=== PATIENT | female | born 1970 | race Caucasian/White ===

== ENCOUNTER 2025-03-16 10:05 | Emergency (ER) | payer BC, SELFPAY ==
--- OUTSIDE RECORDS SUMMARY | 2025-03-16 10:08 | XMS_ITS | Clinical Summary ---
Author Organization [facility] Address [address] [place] [address] Care Team Providers Care Crusher Feeder Name Role Phone Unavailable Primary Care Provider Unavailabl e Source Comments You are receiving this document as you are listed as the primary care provider,follow-up provider, or the patient has been referred to you for consultation.This is in compliance with the Medicare andMedicaid EHR Incentive Program,which states Providers who transition their patient to another setting of careor provider of care or refers their patient to another provider of care shouldprovide summary care record for each transition of care or referral. [facility] Medications No known medications Active Problems No known active problems Social History Tobacco Use Types Packs/Day Years Used Date Smoking Tobacco: Never Assessed Comments Unknown Sex and Gender Information Value Date Recorded Sex Assigned at Not on file Legal Sex Female 8:16 PM CDT Gender Identity Not on file Sexual Orientation Not on file Last Filed Vital Signs Vital Sign Reading Time Taken Comments Blood Pressure - - Pulse - - Temperature - - Respiratory Rate - - Oxygen Saturation - - Inhaled Oxygen Concentration - - Weight 83 kg (182 lb 15.7 oz) 10/23/2024 9:16 AM STRIP MACHINE OPERATOR Height 165.1 cm (5' 5) 10/23/2024 9:16 AM STRIP MACHINE OPERATOR Body Mass Index 30.45 10/23/2024 9:16 AM STRIP MACHINE OPERATOR Plan of Treatment Health Maintenance Due Date Last Done Comments Cervical Cancer Screening Due 1968 Colon Cancer Screening Plan Due 1968 Diabetes Screening- (based on age and BMI) 1968 Hep C Screening (Preventive Services) 1968 Mammogram 1968 HIV Screening (Preventive Services) 1984 Adult Preventive Visit 02/24/1986 HepB Vaccine (1) 02/24/1987 Cholesterol 02/24/2013 Pneumococcal Vaccine 50+ Yrs (1 of 1 - PCV) 02/24/2018 Zoster/Shingles Vaccine (1 of 2) 02/24/2018 COVID-19 Vaccine (3 - season) 2024 09/28/2021, 05/23/2021 Influenza Vaccine (Season Ended) 2025 10/03/2022, 07/17/2019, 10/12/2014, Additional history exists DTaP/Tdap/Td Vaccine (3 - Tdap) 12/28/2026 12/28/2016, 08/14/2006 HepA Vaccine Aged Out No longer eligi ble based on patient's age to complete this topic Hib Vaccine Aged Out No longer eligi ble based on patient's age to complete this topic IPV (Polio) Vaccine Aged Out No longe r eligible based on patient's age to complete this topic MCV4 Vaccine Aged Out No longer eligi ble based on patient's age to complete this topic Meningococcal B Vaccine Aged Out No l onger eligible based on patient's age to complete this topic Insurance [facility]
--- OUTSIDE RECORDS SUMMARY | 2025-03-16 10:09 | XMS_ITS | Clinical Summary ---
Author Organization [facility] Address [address] [place] [id number] Care Team Providers Care Accounting Tutor Name Role Phone Denita Hernandez Primary Care Provider [phone] Margret Dunlap DIPPER MACHINE OPERATOR Unavailable [phone] Allergies Active Allergy Reactions Criticality Noted Date Comments Amoxicillin-Pot Clavulanate Rash 04/26/20 17 Medications levonorgestrel intrauterine device (MIRENA) 20 mcg/24 hr (5 years) IUD Inject 1 Device intrauterine one time for 1 dose. 1 Device 8 Active cetirizine-pseud oephedrine, 5-120 mg, (ZYRTEC-D) 5-120 mg tabletIndication s:Seasonal allergies Take 1 tablets every 12 hours if needed for allergies/conges tion. 180 Tablet 1 1 Active SUMAtriptan NASAL (IMITREX) 20 mg/actuation sprayIndications :Migraine without aura and without status migrainosus, not intractable Inhale 1 [place] (20 mg) into affected nostril(s) every 2 hours if needed for Migraine. Give at minimum 2hrs apart. Max Dose: 40mg per 24hrs. 6 Each 3 4 Active buPROPion (WELLBUTRIN XL) 150 mg Extended-Release tabletIndication s:Mild episode of recurrent major depressive disorder Take 3 Tablets (450 mg) by mouth every morning. 270 Tablet 4 Active venlafaxine (EFFEXOR XR) 37.5 mg Extended-Release capsuleIndicatio ns:Mild episode of recurrent major depressive disorder Take one capsule (37.5 mg) daily for 7 days. Then increase to two capsules (75 mg) daily for 7 days. Then increase to three capsules (112.5 mg) daily for 7 days. 42 Capsule 4 Active venlafaxine (EFFEXOR XR) 150 mg Extended-Release capsuleIndicatio ns:Mild episode of recurrent major depressive disorder TAKE 1 CAP BY MOUTH ONCE DAILY WITH EVENING MEAL. BEGIN ON WEEK #4 OF CROSS TAPER WITH LEXAPRO 90 Capsule 2 4 Active Active Problems Problem Noted Date Diagnosed Date Vitamin D deficiency 01/09/2024 H/O LEEP 01/10/2018 Overview (01/16/2024): 02/1999 ASCUS, Cryo 11/2004 NIL 04/2006 NIL 06/2007 NIL 08/2008 NIL 08/2009 NIL 08/2011 NIL 10/2014 NIL/HPV negative 12/2017 NIL/HPV negative 01/2024 UNS/HPV negative. Plan: Repeat pap within 4 months. Other acne 08/23/2009 Mild episode of recurrent major depressive disor jn 08/23/2009 Migraine, unspecified, witho ut mention of intractable migraine without mention of status migrainosus 06/20/2007 Class 2 obesity due to exces s calories without serious comorbidity with body mass index (BMI) of 35.0 to 35.9 in adult 06/20/2007 Overview (06/20/2007): BMI 10/2003 33 Resolved Problems Problem Noted Date Diagnosed Date Resolved Date Unspecified adjustment reaction 08/30/2009 01/08/2024 Depressive disorder, not elsewhere classified 06/20/20 07 08/23/2009 Encounters Date Type Department Care Team Description 03/16/2025 Nurse Triage [facility] [address] [place] [address] Denita Hernandez PA Knee Injury from Last 3 Months Immunizations Immunization Administration Dates Next Due AMB Influenza, IIV3 (Age >=3 years)(Flu Clinic Only) 08/13/2009 Influenza, IIV3 (Age 6-35 mos) 08/29/2011 Influenza, IIV3 (Age >=3 years) 09/17/20 13,08/29/2011,08/26/2010,2008,08/11/2008,09/18/2007,08/14/2006,1 12/20/2004,08/27/2003 Influenza, IIV4 10/03/2022,07/17/2019,10/12/2014 Td (Age >=7 Years) 05/01/1997 Td, Preservative Free (age > = 7 Years) 12/28/2016 Tdap 08/14/2006 Family History Medical History Relation Name Comments Alcoholism Father Cancer Father testicular Diabetes Father Heart Disease Father [place] at age 69 Stroke Father Diabetes Maternal Grandfather Cancer Mother melanoma Cancer-breast No Family History Relation Name Status Comments Father Maternal Grandfather Mother Social History Tobacco Use Types Packs/Day Years Used Date Smoking Tobacco: Former Cigarettes Q uit: 04/05/2003 Smokeless Tobacco: Never Tobacco Cessation:Counseling Given: Yes Alcohol Use Standard Drinks/Week Comments Yes 0 (1 standard drink = 0.6 oz pur e alcohol) 2-3 drinks per week PHQ-2 Answer Date Recorded PHQ-2 TOTAL SCORE 3 01/08/2024 Social Connections Answer Date Recorded Do you often feel lonely or isolated from those around you? 0 10/30/2023 Financial Resource Strain Answer Date R ecorded Difficulty of Paying Living Expenses 3 10/30/2023 Difficulty of Paying Living Expenses Not on file 10/30/2023 Food Insecurity Answer Date Recorded Do you worry your food will run out before you are able to buy more? 1 10/30/2023 Transportation Needs Answer Date Record ed Does lack of transportation keep you from medica l appointments? 1 10/30/2023 Does lack of transportation keep you from work, meetings or getting things that you need? 1 10/30/2023 Housing Stability Answer Date Recorded What is your housing situation today? 1 10/30/2023 Utilities Answer Date Recorded Do you have trouble paying f or utilities (for example, heat, electricity, water, phone)? 1 10/30/2023 Comments No Sex and Gender Information Value Date Recorded Sex Assigned at Not on file Legal Sex Female 5:17 AM LOG GETTER Gender Identity Not on file Sexual Orientation Not on file Obstetrics History Para Term AB IAB SAB Ectopic Multiple Livin g Live Births 2 2 2 2 Date Outcome GA Total Labor Labor/2nd/3rd Weight Sex Type Anes PTL Hazel A1 A5 Name Clin Term Term Last Filed Vital Signs Vital Sign Reading Time Taken Comments Blood Pressure 118/79 01/08/2024 9:38 AM LOG GETTER Pulse 66 01/08/2024 9:38 AM LOG GETTER Temperature 36.5 C (97.7 F) 04/23/2019 8:13 AM CDT Respiratory Rate - - Oxygen Saturation 98% 01/08/2024 9:38 AM LOG GETTER Inhaled Oxygen Concentration - - Weight 96.7 kg (213 lb 3.2 oz) 01/08/2024 9:38 A M LOG GETTER Height 164.7 cm (5' 4.84) 01/08/2024 9:38 AM CS T Body Mass Index 35.65 01/08/2024 9:38 AM LOG GETTER Plan of Treatment Health Maintenance Due Date Last Done Comments Pneumococcal series for age 50+ (1 of 1 - PCV) 02/24/2018 Zoster (shingles) series for age 50+ (1 of 2) 02/24/2018 COVID-19 vaccine series ( season) 2024 09/28/2021, 05/23/2021 Mammogram for age 45-75 11/02/2024 11/02/20, 10/03/2022, 09/07/2021, Additional history exists BMI (ht and wt on same day) for age 18+ 01/07/2025 01/08/2024, 10/03/2022, 10/12/2021, Additional history exists Depression screening for age 12+ 01/07/2025 01/08/2024, 03/29/2023, 10/03/2022, Additional history exists Pap test for age 21-65 01/07/2025 , 01/01/2018, 01/01/2018, Additional history exists Influenza Vaccine (Season Ended) 2025 10/03/2022, 07/17/2019, 10/12/2014, Additional history exists Tetanus booster 12/28/2026 12/28/2016, 08/05, 05/01/1997 Lipids for age 45-75 01/07/2029 01/08/2024, 10/03/2022, 03/31/2021, Additional history exists Colonoscopy through age 75 05/12/202905/12 (Completed outside of [facility]) Tdap Completed 08/14/2006 HIV for age 15-65 Completed 10/03/2022 Hepatitis C screening for ag e 18-79 Completed 10/03/2022 Procedures Procedure Name Priority Date/Time Associated Diagnosis Comments LIPID PANEL W REFLEX MEASURED LDL Routine 01/08/2024 10:37 AM LOG GETTER Lipid screening HPV HIGH RISK Routine 01/08/2024 10:20 AM LOG GETTER Screening for malignant neoplasm of cervix XR MAMMO DOM BILAT SCREEN Routine 11/02/2023 10:32 AM LOG GETTER Visit for screening mammogram ANTI HIV 1/2 Routine 10/03/2022 10:17 AM LOG GETTER Encounter for screening for HIV ANTI HCV Routine 10/03/2022 10:17 AM LOG GETTER Need for hepatitis C screening test from Last 3 Months or Most Recently Relevant to Health Maintenance Results * LIPID PANEL W REFLEX MEASURED LDL [[id number]] (01/08/2024 10:37 AM LOG GETTER) CHOLESTEROL,TOTAL 164 100 - 199 mg/dL 01/08/2024 6:47 PM LOG GETTER [facility] Comment: Cholesterol, Total Reference Ranges Desirable <200 mg/dL Borderline 200-239 mg/dL High >=240 mg/dL TRIGLYCERIDES 69 <150 mg/dL 01/08/2024 6:47 PM LOG GETTER [facility] HDL CHOLESTEROL 59 >40 mg/dL 6:47 PM LOG GETTER [facility] NON-HDL CHOLESTEROL 105 <145 mg/dl 01/08/2024 6:47 PM LOG GETTER [facility] CHOL/HDL RATIO 2.78 <4.50 01/08/2024 6:47 PM LOG GETTER [facility] LDL CHOLESTEROL 91 <=130 mg/dL 01/08/2024 6:47 PM LOG GETTER [facility] VLDL CHOLESTEROL 14 <=30 mg/dL 01/08/2024 6:47 PM LOG GETTER [facility] PROVIDER ORDERED STATUS RANDOM 01/08/2024 6:47 PM LOG GETTER [facility] Blood BLOOD SPECIMEN / Unknown Venipuncture / Unknown 01/08/2024 10:37 AM LOG GETTER 01/08/2024 10:37 AM LOG GETTER Denita HERNANDEZ CHEMISTRY Final Res ult Performing Organization Address [facility] Co de Phone Number [facility] [address] [place] [address], [place] * HPV HIGH RISK (01/08/2024 10:20 AM LOG GETTER) TYPE 16 Negative Negative 01/11/2024 4:24 PM LOG GETTER [facility] TYPE 18 Negative Negative 01/11/2024 4:24 PM LOG GETTER [facility] OTHER HIGH RISK TYPES Negative Negative 01/11/2024 4:24 PM LOG GETTER [facility] Other (Cervical) Non-Blood / Unknown 01/08/2024 10:20 AM LOG GETTER 01/09/2024 11:45 AM LOG GETTER Narrative [facility] - 01/11/2024 4:24 PM LOG GETTER HPV types 16, 18, 31, 33, 35, 39, 45, 51, 52, 56, 58, 59, 66 and 68 DNA were undetectable or below the pre-set threshold. Methodology: Travellution Imtiaz 4800 HPV Test Denita HERNANDEZ MICROBIOLOGY Final Res ult Performing Organization Address [facility] Co de Phone Number [facility] [address] [place] [address], [place] * XR MAMMO DOM BILAT SCREEN (11/02/2023 10:32 AM LOG GETTER) Anatomical Region Laterality Modality BREASTS, Breast Left, Breast Right Bilateral Mammography Impressions 11/02/2023 4:02 PM LOG GETTER There is no radiographic evidence for malignancy. Recommend annual mammograms. MAMMOGRAM ASSESSMENT: ACR 1 Negative PATIENTS: You will also receive a letter with your examination results in an easy to read format. If you have questions about your results, please contact your referring provider. Narrative 11/02/2023 4:02 PM LOG GETTER For Patients: As a result of the Century Cures Act, medical imaging exams and procedure reports are released immediately into your electronic medical record. You may view this report before your referring provider. If you have questions, please contact your health care provider. XR MAMMO DOM BILAT SCREEN [[id number]] CLINICAL HISTORY: This is an asymptomatic 53 y.o. patient. INDICATION FOR EXAM: Mammogram Screening. TECHNIQUE: CC & MLO views were obtained. This study was evaluated with the assistance of Computer-Aided Detection. Breast Tomosynthesis was used in interpretation. COMPARISON FILM: Yes 10/03/22 [facility] 09/07/21 [facility] FINDINGS: The breasts are heterogeneously dense, which may obscure small masses. There are no dominant masses, suspicious micro calcifications or areas of architectural distortion. Denita HERNANDEZ MAMMO Final Res ult * ANTI HCV (10/03/2022 10:17 AM LOG GETTER) HEPATITIS C ANTIBODY Non-React andrea Non-React andrea 10/04/2022 12:12 PM LOG GETTER [facility] Comment:Antibodies to HCV no t detected; does not exclude the possibility of exposure to HCV. Blood BLOOD SPECIMEN / Unknown Venipuncture / Unknown 10/03/2022 10:17 AM LOG GETTER 10/03/2022 10:19 AM LOG GETTER Dentia HERNANDEZ SEND OUTS Final Res ult [facility] [address] [place] [address], * ANTI HIV 1/2 (10/03/2022 10:17 AM LOG GETTER) HIV-1/HIV-2 ANTIBODY Non-Reacti ve Non-Reacti ve 10/04/2022 12:49 PM LOG GETTER [facility] Comment:HIV-1 p24 and HIV-1/ HIV-2 Ab not detected. Blood BLOOD SPECIMEN / Unknown Venipuncture / Unknown 10/03/2022 10:17 AM LOG GETTER 10/03/2022 10:19 AM LOG GETTER us Denita HERNANDEZ SEND OUTS Final Res ult [facility] [address] [place] [address], from Last 3 Months or Most Recently Relevant to Health Maintenance Insurance [facility] Care Teams Accounting Tutor Relationship Specialty Start Date End Date Denita Hernandez PA [address] [place] [address] PCP - General Physician Shank Cementer Hand 10/03/22 Margret Dunlap NP [address] [facility] [address] [place] [address] Sleep Medicine 06/18/24
[2025-03-16 10:34] VITALS: BP 127/80; PULSE 61; RESP 16; TEMP 36.6; O2SAT 97; BMI 31.6
--- NOTE | 2025-03-16 11:11 | CRLHL7_ITS ---
For Patients: As a result of the Cures Act, medical imaging exams and procedure reports are released immediately into your electronic medical record. You may view this report before your referring provider. If you have questions, please contact your health care provider. INDICATION: Lateral knee pain and swelling COMPARISON: None. TECHNIQUE: Three views right knee. FINDINGS: No acute or healing fracture. Normal joint alignment. Mild joint space narrowing with a small patellofemoral osteophyte. No focal bone lesions. Normal bone mineralization. Small knee joint effusion. No foreign body. IMPRESSION: Small right knee joint effusion. Very mild osteoarthritis. No acute appearing osseous findings. Dictated by Marcela Huerta MD @ 03/16/2025 11:39:11 AM (Electronically Signed)
--- NOTE | 2025-03-16 11:26 | ED_ITS ---
HPI - Extremity Injury (Lower) General Date Seen: 03/16/25 Chief Complaint: Extremity Pain/Injury, Lower Stated Complaint: Right knee gave up on her and she fell Time Seen by Provider: 03/16/25 10:51 Source: patient Mode of arrival: ambulatory History of Present Illness HPI Narrative: Patient is a 55-year-old female presenting for right knee pain. She states she was walking down the steps when her right knee suddenly gave out on her causing her fall down about 6 steps. She denies hitting her head. Denies any other pain at this time other than knee. States pain in the knee is minimal when she is at rest but she cannot breathing weight on her right knee. Denies any other previous injuries to this knee. Most the pain is in the lateral aspect of the joint line. Denies any numbness to the leg. Is able to move the rest of her leg without issues. Full range of motion of her ankle. No other concerns noted Related Data Home Medications ?Medication ?Instructions ?Recorded ?Confirmed bupropion HCl 150 mg 24 hr tablet, 150 mg PO DAILY 03/16/25 03/16/25 extended release fluoxetine 20 mg capsule 20 mg PO DAILY 03/16/25 03/16/25 Allergies Allergy/AdvReac Type Severity Reaction Status Date / Time amoxicillin Allergy Unknown Verified 03/16/25 10:38 Review of Systems Narrative: Pertinent systems reviewed and were negative unless stated in HPI PFSH PFSH Social History Smoking Status: Never smoker Second hand tobacco smoke exposure: No How often do you have a drink containing alcohol: never AUDIT-C Alcohol total score: 0 Non-prescribed substance use: denies use Exam Narrative: Exam Narrative: Const: Well-nourished, Well-developed, in mild distress Eyes: PERRL, no conjunctival injection, and symmetrical lids HENT: Atraumatic external nose and ears. Moist mucous membranes. Neck: Symmetric, trachea midline, No thyromegaly. MSK: Mild swelling to right knee. Decreased active range of motion of right knee secondary to pain. Positive recommend a test for lateral malleolus. Popping sensation felt in the knee on movement. I am able to fully extend the knee but had to do it slowly. No midline spinal tenderness. No tenderness noted to rest of joints, long bones, chest Skin: Warm, Dry. No rashes or lesions. Neuro: Normal Muscle tone, No focal neurological deficits. Psych: Awake, Alert, & Oriented x3. Appropriate mood and affect. Const: Vital Signs, click to edit/add: Vital Signs - 24 hr 03/16/25 10:34 Temperature 97.9 F Pulse Rate [Pulse Oximeter] 61 Respiratory Rate 16 Blood Pressure [Ri ght Upper Arm] 127/80 Pulse Oximetry 97 Oxygen Delivery Me thod Room Air Course Vital Signs Vital signs: Initial Vital Signs Temperature 97.9 F 03/16/25 10:34 Temperature Source Temporal Artery Scan 03/16/25 10:34 Pulse Rate 61 03/16/25 10:34 Respiratory Rate 16 03/16/25 10:34 Blood Pressure 127/80 03/16/25 10:34 Blood Pressure Mean 95 03/16/25 10:34 Blood Pressure Position Sitting 03/16/25 10:34 Pulse Oximetry 97 03/16/25 10:34 Oxygen Delivery Method Room Air 03/16/25 10:34 Vital Signs Temperature 97.9 F 03/16/25 10:34 Pulse Rate 61 03/16/25 10:34 Respiratory Rate 16 03/16/25 10:34 Blood Pressure 127/80 03/16/25 10:34 Pulse Oximetry 97 03/16/25 10:34 Oxygen Delivery Method Room Air 03/16/25 10:34 Temperature 97.9 F 03/16/25 10:34 Pulse Rate 61 03/16/25 10:34 Respiratory Rate 16 03/16/25 10:34 Blood Pressure 127/80 03/16/25 10:34 Pulse Oximetry 97 03/16/25 10:34 Oxygen Delivery Method Room Air 03/16/25 10:34 MDM - Extremity Injury (Lower) MDM Narrative Medical decision making narrative: Patient is a 55-year-old female presenting for right knee pain. At this time I believe she has a torn meniscus. Some tenderness to the lateral joint line. There is a popping sensation in the knee with movement and did have pain to the lateral malleolus with some a Jim test. No pain to medial malleolus. I was able to extend the leg and was not catching but had to move it slowly due to the pain which she states was tolerable and she did not feel like her knee was stuck. No other injuries noted on the fall. Physical exam is otherwise unremarkable. Will do an x-ray of this right knee to look for any other abnormalities. X-ray shows a small right knee joint effusion. This is expected considering the expected injury. Will place her in a knee immobilizer for torn meniscus. Will help her follow-up with orthopedics. She agrees with this plan. Imaging Data Right knee x-ray: Attestation: I have reviewed the pertinent imaging results. Radiologist's impression: Small right knee joint effusion. Very mild osteoarthritis. No acute appearing osseous findings. Dictated by Marcela Huerta MD @ 03/16/2025 11:39:11 AM Discharge Plan Discharge Clinical Impression: Acute knee pain Patient Disposition: Home, Self-Care Condition: Stable Instructions: Meniscus Tear (ED) Additional Instructions: I believe you most likely have a lateral meniscus tear. Follow-up with [facility]. Call them at . You can call them today to set up an appointment as soon as available. Take Tylenol and ibuprofen for pain. Use the knee immobilizer and crutches as needed for support of your leg. Prescriptions: No Action fluoxetine 20 mg capsule 20 mg PO DAILY bupropion HCl 150 mg tablet extended release 24 hr 150 mg PO DAILY Follow Up/Referrals: Provider,Not a Local [Primary Care Provider] - Stand Alone Forms: Pay-Me Info Instructions
--- OUTSIDE RECORDS SUMMARY | 2025-03-16 11:38 | XMS_ITS | Clinical Summary ---
Author Organization [facility] Address [address] [place] [address] Care Team Providers Care [place] Ordinary Name Role Phone Unavailable Primary Care Provider [...] (182 lb 15.7 oz) 10/23/2024 9:16 AM VETERINARY PHARMACOLOGIST Height 165.1 cm (5' 5) 10/23/2024 9:16 AM VETERINARY PHARMACOLOGIST Body Mass Index 30.45 10/23/2024 9:16 AM VETERINARY PHARMACOLOGIST Plan of Treatment Health Maintenance Due Date [...] patient's age to complete this topic Insurance [facility]
--- OUTSIDE RECORDS SUMMARY | 2025-03-16 11:39 | XMS_ITS | Clinical Summary ---
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 Core Layer Name Role Phone Denita Hernandez Primary Care Provider [phone] Margret Dunlap PRODUCT MANAGEMENT INTERN Unavailable [phone] Allergies Active Allergy Reactions Criticality Noted Date [...] without status migrainosus, not intractable Inhale 1 [place] (20 mg) into affected nostril(s) every 2 [...] Department Care Team Description 03/16/2025 Nurse Triage [facility] [[email or web address] [address] [place] [address] Denita Hernandez PA Knee Injury [...] Father testicular Diabetes Father Heart Disease Father [place] at age 69 Stroke Father Diabetes Maternal [...] on file Legal Sex Female 5:17 AM ADJUSTER ARBITRATOR Gender Identity Not on file Sexual Orientation Not on file Obstetrics History Para Term AB IAB SAB Ectopic Multiple Livin g Live Births 2 2 2 2 Date Outcome GA Total Labor Labor/2nd/3rd Weight Sex Type Anes PTL Hazel A1 A5 Name Clin Term Term Last Filed Vital Signs Vital Sign Reading Time Taken Comments Blood Pressure 118/79 01/08/2024 9:38 AM ADJUSTER ARBITRATOR Pulse 66 01/08/2024 9:38 AM ADJUSTER ARBITRATOR Temperature 36.5 C (97.7 F) 04/23/2019 8:13 AM CDT Respiratory Rate - - Oxygen Saturation 98% 01/08/2024 9:38 AM ADJUSTER ARBITRATOR Inhaled Oxygen Concentration - - Weight 96.7 kg (213 lb 3.2 oz) 01/08/2024 9:38 A M ADJUSTER ARBITRATOR Height 164.7 cm (5' 4.84) 01/08/2024 9:38 AM CS T Body Mass Index 35.65 01/08/2024 9:38 AM ADJUSTER ARBITRATOR Plan of Treatment Health Maintenance Due Date [...] through age 75 05/12/202905/12 (Completed outside of [facility]) Tdap Completed 08/14/2006 HIV for age 15-65 Completed 10/03/2022 Hepatitis C screening for ag e 18-79 Completed 10/03/2022 Procedures Procedure Name Priority Date/Time Associated Diagnosis Comments LIPID PANEL W REFLEX MEASURED LDL Routine 01/08/2024 10:37 AM ADJUSTER ARBITRATOR Lipid screening HPV HIGH RISK Routine 01/08/2024 10:20 AM ADJUSTER ARBITRATOR Screening for malignant neoplasm of cervix XR MAMMO DOM BILAT SCREEN Routine 11/02/2023 10:32 AM ADJUSTER ARBITRATOR Visit for screening mammogram ANTI HIV 1/2 Routine 10/03/2022 10:17 AM ADJUSTER ARBITRATOR Encounter for screening for HIV ANTI HCV Routine 10/03/2022 10:17 AM ADJUSTER ARBITRATOR Need for hepatitis C screening test from Last 3 Months or Most Recently Relevant to Health Maintenance Results * LIPID PANEL W REFLEX MEASURED LDL [[id number]] (01/08/2024 10:37 AM ADJUSTER ARBITRATOR) CHOLESTEROL,TOTAL 164 100 - 199 mg/dL 01/08/2024 6:47 PM ADJUSTER ARBITRATOR [facility] Comment: Cholesterol, Total Reference Ranges Desirable <200 mg/dL Borderline 200-239 mg/dL High >=240 mg/dL TRIGLYCERIDES 69 <150 mg/dL 01/08/2024 6:47 PM ADJUSTER ARBITRATOR [facility] HDL CHOLESTEROL 59 >40 mg/dL 6:47 PM ADJUSTER ARBITRATOR [facility] NON-HDL CHOLESTEROL 105 <145 mg/dl 01/08/2024 6:47 PM ADJUSTER ARBITRATOR [facility] CHOL/HDL RATIO 2.78 <4.50 01/08/2024 6:47 PM ADJUSTER ARBITRATOR [facility] LDL CHOLESTEROL 91 <=130 mg/dL 01/08/2024 6:47 PM ADJUSTER ARBITRATOR [facility] VLDL CHOLESTEROL 14 <=30 mg/dL 01/08/2024 6:47 PM ADJUSTER ARBITRATOR [facility] PROVIDER ORDERED STATUS RANDOM 01/08/2024 6:47 PM ADJUSTER ARBITRATOR [facility] Blood BLOOD SPECIMEN / Unknown Venipuncture / Unknown 01/08/2024 10:37 AM ADJUSTER ARBITRATOR 01/08/2024 10:37 AM ADJUSTER ARBITRATOR Denita HERNANDEZ CHEMISTRY Final Res ult Performing Organization Address [facility] Co de Phone Number [facility] [address] [place] [address], [place] * HPV HIGH RISK (01/08/2024 10:20 AM ADJUSTER ARBITRATOR) TYPE 16 Negative Negative 01/11/2024 4:24 PM ADJUSTER ARBITRATOR [facility] TYPE 18 Negative Negative 01/11/2024 4:24 PM ADJUSTER ARBITRATOR [facility] OTHER HIGH RISK TYPES Negative Negative 01/11/2024 4:24 PM ADJUSTER ARBITRATOR [facility] Other (Cervical) Non-Blood / Unknown 01/08/2024 10:20 AM ADJUSTER ARBITRATOR 01/09/2024 11:45 AM ADJUSTER ARBITRATOR Narrative [facility] - 01/11/2024 4:24 PM ADJUSTER ARBITRATOR HPV types 16, 18, 31, 33, 35, 39, 45, 51, 52, 56, 58, 59, 66 and 68 DNA were undetectable or below the pre-set threshold. Methodology: Sibaritus Imtiaz 4800 HPV Test Denita HERNANDEZ MICROBIOLOGY Final Res ult Performing Organization Address City/[facility] Co de Phone Number [facility] [address] [place] [address], [place] * XR MAMMO DOM BILAT SCREEN (11/02/2023 10:32 AM ADJUSTER ARBITRATOR) Anatomical Region Laterality Modality BREASTS, Breast Left, Breast Right Bilateral Mammography Impressions 11/02/2023 4:02 PM ADJUSTER ARBITRATOR There is no radiographic evidence for malignancy. Recommend annual mammograms. MAMMOGRAM ASSESSMENT: ACR 1 Negative PATIENTS: You will also receive a letter with your examination results in an easy to read format. If you have questions about your results, please contact your referring provider. Narrative 11/02/2023 4:02 PM ADJUSTER ARBITRATOR For Patients: As a result of the Century Cures Act, medical imaging exams and procedure reports are released immediately into your electronic medical record. You may view this report before your referring provider. If you have questions, please contact your health care provider. XR MAMMO DOM BILAT SCREEN [[id number]] CLINICAL HISTORY: This is an asymptomatic 53 y.o. patient. INDICATION FOR EXAM: Mammogram Screening. TECHNIQUE: CC & MLO views were obtained. This study was evaluated with the assistance of Computer-Aided Detection. Breast Tomosynthesis was used in interpretation. COMPARISON FILM: Yes 10/03/22 [facility] 09/07/21 [facility] FINDINGS: The breasts are heterogeneously dense, which may obscure small masses. There are no dominant masses, suspicious micro calcifications or areas of architectural distortion. Denita HERNANDEZ MAMMO Final Res ult * ANTI HCV (10/03/2022 10:17 AM ADJUSTER ARBITRATOR) HEPATITIS C ANTIBODY Non-React andrea Non-React andrea 10/04/2022 12:12 PM ADJUSTER ARBITRATOR [facility] Comment:Antibodies to HCV no t detected; does not exclude the possibility of exposure to HCV. Blood BLOOD SPECIMEN / Unknown Venipuncture / Unknown 10/03/2022 10:17 AM ADJUSTER ARBITRATOR 10/03/2022 10:19 AM ADJUSTER ARBITRATOR Denita HERNANDEZ SEND OUTS Final Res ult [facility] [address] [place] [address], * ANTI HIV 1/2 (10/03/2022 10:17 AM ADJUSTER ARBITRATOR) HIV-1/HIV-2 ANTIBODY Non-Reacti ve Non-Reacti ve 10/04/2022 12:49 PM ADJUSTER ARBITRATOR [facility] Comment:HIV-1 p24 and HIV-1/ HIV-2 Ab not detected. Blood BLOOD SPECIMEN / Unknown Venipuncture / Unknown 10/03/2022 10:17 AM ADJUSTER ARBITRATOR 10/03/2022 10:19 AM ADJUSTER ARBITRATOR us Denita HERNANDEZ SEND OUTS Final Res ult [facility] [address] [place] [address], from Last 3 Months or Most Recently Relevant to Health Maintenance Insurance [facility] Care Teams Plywood Layup Line Core Layer Relationship Specialty Start Date End Date Denita Hernandez PA [address] [place] [address] PCP - General Physician Software Engineer [employer] 10/03/22 Margret Dunlap NP [address] [facility] [address] [place] [address] Sleep Medicine 06/18/24
== END 2025-03-16 12:09 | disposition home or self-care (01) ==
PROVIDERS: Emergency Provider Student in an Organized Health Care Education/Training Program
DX: M79.661 Pain in right lower leg (principal)
CPT/HCPCS: 73562; 99283

== ENCOUNTER 2025-03-26 17:48 | Outpatient (CLI) | payer BC, SELFPAY ==
--- NOTE | 2025-03-26 18:15 | MR_ITS ---
[address] [address] Phone:?[phone] Fax:?[phone] Referring Physician Information: Isaac Morris M.D. [address] [address] Phone:?[phone] Fax:?[phone] Patient:Veronica Tucker D.O.B:?1970 Sex:?Female Phone:?[phone] [facility] MRN:?[id number] Exam Date:?03/26/2025 EXAM: MRI of the RIGHT KNEE, without contrast CLINICAL HISTORY: Ongoing right knee pain. Evaluate for internal derangement. COMPARISONS: Plain radiographs 03/16/2025. TECHNICAL: MR sequences of the right knee: sagittals: PD, PDFS coronals: PD, STIR axials: PD, T2 FS CONTRAST: None SEDATION: None FINDINGS: Bones: No fracture, bone marrow contusion, or other suspicious bone marrow signal abnormality. Patellofemoral joint: Cartilage: Slitlike chondral fissuring and slitlike delamination at the subchondral bone plate-cartilage interface over the median patellar ridge and adjacent portion of the medial patellar facet measuring 9 mm in craniocaudad dimension by 12 mm in transverse dimension resulting in unstable chondral flap formation best seen on axial series 4 images 8 through 10. 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 Retinacula: The medial and lateral retinacula are intact. Fat pads: The infrapatellar, quadriceps, and prefemoral fat pads are unremarkable. Knee joint: Effusion: Large right knee joint effusion. Popliteal cyst: None. Intra-articular bodies: None. Posteromedial corner: The semimembranosus and pes anserine tendons are intact. Medial compartment: Medial meniscus: 3 mm of medial meniscal extrusion best seen on coronal series 7 image 19. No direct evidence of medial meniscal tear. Cartilage: Intact. Lateral compartment: Lateral meniscus: Complex but predominantly horizontal tear from the anterior horn through body of the lateral meniscus with free edge surfacing component of the body and inferiorly surfacing component of the anterior horn and ill-defined complex tear from the posterior horn through posterior root insertion of the lateral meniscus. No adjacent tibial bone marrow edema. 6 x 5 x 14 mm ganglion abutting the inferior aspect of the anterior portion of the anterior horn of the lateral meniscus. Cartilage: 7 x 7 mm area of near full-thickness and full-thickness chondral loss over the posterior portion of the lateral tibial plateau with minimal subjacent subchondral edema-like signal and an approximately 1.0 x 1.0 cm area of slight grade II chondromalacia over the mid weightbearing portion of the lateral femoral condyle. Ligaments: Anterior cruciate ligament: Intact. Posterior cruciate ligament: Intact. Medial collateral ligament: Intact. Posterior oblique ligament: Intact. Fibular collateral ligament: Intact. Posterolateral corner: The distal biceps femoris tendon, iliotibial band, popliteus tendon, popliteus muscle, popliteofibular ligament, and arcuate ligament are intact. Extensor mechanism: Patellar tendon: Intact. Quadriceps tendon: Intact. IMPRESSION: 1. Complex but predominantly horizontal tear from the anterior horn through body of the lateral meniscus with free edge surfacing component of the body and inferiorly surfacing component of the anterior horn and ill-defined complex tear from the posterior horn through posterior root insertion of the lateral meniscus. No adjacent tibial bone marrow edema. 6 x 5 x 14 mm ganglion abutting the inferior aspect of the anterior portion of the anterior horn of the lateral meniscus. 2. 3 mm of medial meniscal extrusion. No direct evidence of medial meniscal tear. 3. 7 x 7 mm area of near full-thickness and full-thickness chondral loss over the posterior portion of the lateral tibial plateau with minimal subjacent subchondral edema-like signal and an approximately 1.0 x 1.0 cm area of slight grade II chondromalacia over the mid weightbearing portion of the lateral femoral condyle. 4. Slitlike chondral fissuring and slitlike delamination at the subchondral bone plate-cartilage interface over the median patellar ridge and adjacent portion of the medial patellar facet measuring 9 x 12 mm resulting in unstable chondral flap formation. 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 5. Large right knee joint effusion. 6. No ligamentous injury of the right knee. RCB Electronically signed on 03/27/2025 10:43:00 AM by Lance Estrada M.D.
== END 2025-03-26 17:49 | disposition home or self-care (01) ==
LOC: MRI 17:49
PROVIDERS: PCP Student in an Organized Health Care Education/Training Program; Visit Provider Orthopaedic Surgery Sports Medicine
DX: M25.561 Pain in right knee (principal); S83.271A Complex tear of lateral meniscus, current injury, right knee, initial encounter; M94.261 Chondromalacia, right knee; M25.461 Effusion, right knee
CPT/HCPCS: 73721

== ENCOUNTER 2025-04-06 09:46 | Day surgery (SDC) | payer BC, SELFPAY ==
[2025-04-06] VITALS (11 sets, daily range): BP systolic 93–113; BP diastolic 61–77; PULSE 41–64; RESP 16; TEMP 36.1–36.7; O2SAT 96–99; BMI 32.8
[2025-04-06] MEDS: SODIUM CHLORIDE 0.9 % (FLUSH) 10 ML SYRINGE IVF (10:20)
[2025-04-06] MEDS: LACTATED RINGERS 1000 ML 1,000 ML 100 ML IV (10:20)
--- NOTE | 2025-04-06 11:04 | P.ANES_ITS ---
Anesthesia Charges Start Date/Time Anesthesia Start Date: 04/06/25 Anesthesia Start Time: 11:44 Stop Date/Time Anesthesia Stop Date: 04/06/25 Anesthesia Stop Time: 12:50 Coding CPT Codes CPT Codes: ANESTH KNEE JOINT SURGERY - 49544 ([id number]) P2 - PATIENT W/MILD SYST DISEASE, QK - MOLDING ROOM SUPERVISOR 2-4 CNCRNT ANES PROC, QX - VACUUM EVAPORATION OPERATOR SVC W/ MD MED DIRECTION
--- NOTE | 2025-04-06 11:04 | W.ANESCHARGE ---
Anesthesia Charges Start Date/Time Anesthesia Start Date: 04/06/25 Anesthesia Start Time: 11:44 Stop Date/Time Anesthesia Stop Date: 04/06/25 Anesthesia Stop Time: 12:50 Coding CPT Codes CPT Codes: ANESTH KNEE JOINT SURGERY - 49994 ([id number]) P2 - PATIENT W/MILD SYST DISEASE, QK - POLISHER ALUMINUM 2-4 CNCRNT ANES PROC, QX - AUTOMATED EQUIPMENT ENGINEER TECHNICIAN SVC W/ MD MED DIRECTION
--- NOTE | 2025-04-06 11:29 | W.PM.H&PU ---
History & Physical Update History & Physical Update H&P Reviewed and patient assessed: No changes noted
[2025-04-06] MEDS: CEFAZOLIN 1 GM inj IVP (12:02)
--- NOTE | 2025-04-06 12:35 | P.ORPRC_ITS ---
Procedure Note Date of procedure: 04/06/25 Procedure: PREOPERATIVE DIAGNOSIS: 1. Right knee lateral meniscus tear POSTOPERATIVE DIAGNOSIS: 1. Right knee lateral meniscus tear PROCEDURE: 1. Right knee arthroscopic partial lateral meniscectomy SURGEON: Isaac Morris M.D. GARMENT PRESSER: Rik Stiles PA-C. Of note, an district administrative assistant was critical for this case to aid in patient positioning, knee manipulation, instrument exchange, and closure. ANESTHESIA: Spinal EBL: 2ml TOURNIQUET: 30 min at 300 torr COMPLICATIONS: None evident INDICATIONS: The patient is a pleasant 55-year-old female who has experienced right knee pain particularly with any twisting or turning. Physical exam was concerning for medial meniscus tear, this was confirmed on MRI. Additionally, attempted nonoperative management has been tried, and failed. Thus, surgery was recommended. FINDINGS: Complex tear lateral meniscus essentially from the posterior horn approaching the posterior root all way around to the anterior horn. In fact, this was approaching a discoid meniscus. There was a meniscal attachment from the anterior root to the posterior root that was torn/unstable and worthy of debridement. Beyond that, the posterior horn and midbody extending to the anterior horn also had a complex tear pattern including horizontal, vertical, and oblique type of tear directions. Articular cartilage was healthy and intact in the lateral compartment. The medial compartment overall was relatively healthy with exception of an 8 mm diameter full-thickness grade 4 chondral possible defect in the weight-bearing portion of the far lateral aspect of medial femoral condyle. There was also grade 2-3 chondromalacia trochlear groove centrally. Grade 2 chondromalacia patella. DESCRIPTION OF PROCEDURE: After a thorough discussion of risks, benefits, and alternatives, the patient was brought to the operating room and placed upon the operating table. Induction of anesthesia was undertaken as previously noted. 2g iv Ancef was administered within 1 hr of incision preoperatively. Appropriate time-out was performed identifying proper patient, site, and procedure. The right lower extremity was prepped and draped in the appropriate sterile fashion using ChloraPrep. The limb was exsanguinated and tourniquet inflated. Anterolateral and anteromedial portals were established with an 11 blade, and a diagnostic arthroscopy was performed. This identified the findings as noted above. Following the diagnostic arthroscopy, a partial lateral menisectomy was performed with the combination of basket forceps, apollo cautery, and a motorized shaver. Following this, the meniscus was re-probed and found to be stable. Approximately 33 -40 % of the overall meniscus required resection. At this stage, the shaver was reinserted into the suprapatellar pouch and all remaining meniscal debris was evacuated. Instruments were removed, excess fluid was drained, and closure performed with 4-0 Monocryl with Steri-Strips. Dressings were applied, the tourniquet deflated, and the patient was awoken from anesthesia and transferred to the PACU in stable condition. PLAN: 1. Weightbear as tolerated operative extremity. Crutch / walker ambulation assistance PRN. 2. Ice, acetominophen and/or ibuprofen, and Oxycodone for pain as needed. 3. Knee range of motion and quad sets/straight leg raise regularly 4. Follow up with PA visit in 1-2 weeks for a wound check and possibly to initiate physical therapy.
[2025-04-06] MEDS: ROPIVACAINE 0.5% 30 ML 150 MG INJECTION (12:40)
--- NOTE | 2025-04-06 12:49 | P.ANES_ITS ---
Anesthesia Charges Start Date/Time Anesthesia Start Date: 04/06/25 Anesthesia Start Time: 11:44 Stop Date/Time Anesthesia Stop Date: 04/06/25 Anesthesia Stop Time: 12:50 Coding CPT Codes CPT Codes: ANESTH KNEE JOINT SURGERY - 65049 ([id number]) P2 - PATIENT W/MILD SYST DISEASE, QK - YARD DEMURRAGE CLERK 2-4 CNCRNT ANES PROC, QX - AIRCRAFT ENGINE INSTALLER SVC W/ MD MED DIRECTION
--- NOTE | 2025-04-06 12:49 | W.ANESCHARGE ---
Anesthesia Charges Start Date/Time Anesthesia Start Date: 04/06/25 Anesthesia Start Time: 11:44 Stop Date/Time Anesthesia Stop Date: 04/06/25 Anesthesia Stop Time: 12:50 Coding CPT Codes CPT Codes: ANESTH KNEE JOINT SURGERY - 87837 ([id number]) P2 - PATIENT W/MILD SYST DISEASE, QK - JUNIOR FINANCIAL ANALYST 2-4 CNCRNT ANES PROC, QX - HIGH SCHOOL PROFESSIONAL SVC W/ MD MED DIRECTION
--- NOTE | 2025-04-06 13:01 | SUR.PHASEI ---
pt temp is 98.0 but she states she is feeling cold, despite warm blankets applied. Bare hugger blanket applied.
--- NOTE | 2025-04-06 13:40 | SUR.PHASEII ---
Pt's temp is within normal limits, requesting the bare hugger because she is cold. Eating toast and drinking pop. in room. Able to wiggle toes, denies pain
[2025-04-06] MEDS: OXYCODONE 5 MG TABLET PO (14:25)
--- NOTE | 2025-04-06 14:31 | SUR.PHASEII ---
pt ambulated to bathroom with walker and staff. Tolerated without difficulty. Voided and felt like she emptied her bladder. wheelchair out to car with staff and .
== END 2025-04-06 14:32 | disposition home or self-care (01) ==
LOC: OR 09:47
PROVIDERS: PCP Student in an Organized Health Care Education/Training Program; Visit Provider Orthopaedic Surgery Sports Medicine
PROC: (CPT 29870; principal; 2025-04-06 11:15)
DX: S83.271A Complex tear of lateral meniscus, current injury, right knee, initial encounter (principal)
CPT/HCPCS: 29881; 01400; A9270; J0690; J1100; J2250; J2405; J2704; J2795; J7120

== ENCOUNTER 2025-05-26 14:10 | Outpatient (CLI) | payer BC, SELFPAY ==
--- NOTE | 2025-05-26 14:30 | MR_ITS ---
[address] [address] Phone:?[phone] Fax:?[phone] Referring Physician Information: Isaac Morris M.D. [address] [address] Phone:?[phone] Fax:?[phone] Patient:Veronica Tucker D.O.B:?1970 Sex:?Female Phone:?[phone] [facility] MRN:?[id number] Exam Date:?05/26/2025 EXAM: MRI of the LEFT KNEE, without contrast CLINICAL HISTORY: Internal derangement of the left knee. COMPARISONS: None available. TECHNICAL: MR sequences of the left knee: sagittals: PD, PDFS coronals: PD, STIR axials: PD, T2 FS CONTRAST: None SEDATION: None FINDINGS: Bones: No fracture, bone marrow contusion, or other suspicious bone marrow signal abnormality. Patellofemoral joint: Cartilage: Single focus of full-thickness chondral fissuring over the inferior portion of the lateral patellar facet with slight subjacent subchondral cystic change. Retinacula: The medial and lateral retinacula are intact. Fat pads: The infrapatellar, quadriceps, and prefemoral fat pads are unremarkable. Knee joint: Effusion: Trace left knee joint effusion. Popliteal cyst: None. Intra-articular bodies: None. Posteromedial corner: The semimembranosus and pes anserine tendons are intact. Medial compartment: Medial meniscus: Intact. Cartilage: Intact. Lateral compartment: Lateral meniscus: The lateral meniscus is discoid. No lateral meniscal tear. Cartilage: Intact. Ligaments: Anterior cruciate ligament: Intact. Posterior cruciate ligament: Intact. Medial collateral ligament: Intact. Posterior oblique ligament: Intact. Fibular collateral ligament: Intact. Posterolateral corner: The distal biceps femoris tendon, iliotibial band, popliteus tendon, popliteus muscle, popliteofibular ligament, and arcuate ligament are intact. Extensor mechanism: Patellar tendon: Intact. Quadriceps tendon: Interstitial delamination within/mild tendinopathy of the distal quadriceps tendon. IMPRESSION: 1. Interstitial delamination within/mild tendinopathy of the distal quadriceps tendon. 2. Single focus of full-thickness chondral fissuring over the inferior portion of the lateral patellar facet with slight subjacent subchondral cystic change. 3. Trace left knee joint effusion. 4. Discoid lateral meniscus. No meniscal tear. 5. No ligamentous injury of the left knee. RCB Electronically signed on 05/27/2025 12:11:00 PM by Lance Estrada M.D.
== END 2025-05-26 14:11 | disposition home or self-care (01) ==
LOC: MRI 14:10
PROVIDERS: PCP Student in an Organized Health Care Education/Training Program; Visit Provider Orthopaedic Surgery Sports Medicine
DX: M25.562 Pain in left knee (principal); M23.92 Unspecified internal derangement of left knee; M25.462 Effusion, left knee
CPT/HCPCS: 73721

== ENCOUNTER 2025-07-07 11:15 | Outpatient (RCR) | payer BC, SELFPAY | END 2025-09-18 08:34 | disposition home or self-care (01) | PROVIDERS: PCP Student in an Organized Health Care Education/Training Program; Visit Provider Orthopaedic Surgery Sports Medicine | DX: Z48.89 Encounter for other specified surgical aftercare (principal); M25.561 Pain in right knee; Z51.89 Encounter for other specified aftercare | CPT/HCPCS: 97110; 97116; 97161 ==